=== PATIENT | female | born 1965 | race Native Hawaiian/Other Pacific Islander ===

== ENCOUNTER 2017-08-19 22:20 | Emergency (ER) | payer BC ==
[2017-08-19] MEDS ORDERED: diphenhydrAMINE 50 MG/ML 1 ML VIAL IVP STA (22:45)
[2017-08-19] MEDS ORDERED: FAMOTIDINE 20 MG/2 ML VIAL IV STA (22:45)
--- NOTE | 2017-08-19 22:56 | ED ---
Allergic Reaction HPI - General Chief complaint: Allergic Reaction Stated complaint: Possible Allergic Reaction Time Seen by Provider: 08/19/17 22:30 Source: patient Mode of arrival: ambulatory Limitations: no limitations - History of Present Illness Initial Comments: Patient presents with itching rash that started tonight approximately one hour after eating dinner. Patient states she took prednisone tablets that she is prescribed for poison jorge the same time as her dinner. She states she began having itching and hives on her upper back forearms and lower legs bilaterally. Patient denies any trouble breathing, shortness of breath, throat itching or scratching or swelling, denies tongue swelling, denies chest pain, denies abdominal pain. Patient denies any history of ALLERGIES other than penicillin. Denies food or environmental ALLERGIES. Denies any changes in laundry detergent or new clothes. Denies history of environmental or food ALLERGIES. Patient states she took her first dose of prednisone yesterday without adverse effects. Patient states her lisinopril was changed yesterday to a higher dose, took the higher dose yesterday. She does not take any medications at home prior to arrival for the itching. - Related Data Home Medications Medication Instructions Recorded Confirmed Glimepiride [Amaryl] 4 mg PO BID 07/01/15 08/19/17 Lisinopril [Prinivil] 20 mg PO BID 07/01/15 08/19/17 Atenolol [Tenormin] 100 mg PO BID 08/19/17 08/19/17 Ibuprofen [Motrin] 800 mg PO Q8H PRN 08/19/17 08/19/17 Levothyroxine Sodium [Synthroid] 100 mcg PO DAILY 08/19/17 08/19/17 cloNIDine [Catapres-TTS] 1 patch TRANSDERM GALARZA 08/19/17 08/19/17 methylPREDNISolone [Medrol Dose See Taper PO DIRECTED 08/19/17 08/19/17 Pack] Previous Rx's Medication Instructions Recorded Famotidine [Pepcid] 20 mg PO BID 5 Days #10 tablet 08/19/17 diphenhydrAMINE [Benadryl] 50 mg PO TID PRN #12 capsule 08/19/17 Allergies Allergy/AdvReac Type Severity Reaction Status Date / Time morphine Allergy Unknown Verified 08/19/17 22:55 Penicillins Allergy Rash/Hives, Verified 08/19/17 22:55 swelling Review of Systems ROS Statement: Those systems with pertinent positive or pertinent negative responses have been documented in the HPI. ROS Other: All systems not noted in ROS Statement are negative. Constitutional: Denies: fever, chills Eyes: Denies: eye discharge, vision change ENT: Denies: ear pain, throat pain, congestion Respiratory: Denies: cough, dyspnea, wheezes, stridor Cardiovascular: Denies: chest pain Endocrine: Denies: fatigue Gastrointestinal: Denies: abdominal pain, nausea, vomiting Skin: Reports: rash, pruritus Neurological: Denies: headache Past Medical History Past Medical History: Diabetes Mellitus, Hypertension Additional Past Medical History / Comment(s): Vertigo History of Any Multi-Drug Resistant Organisms: None Reported Past Surgical History: Section, Cholecystectomy Additional Past Surgical History / Comment(s): Cyst removed from left neck Past Psychological History: No Psychological Hx Reported Smoking Status: Former smoker Past Alcohol Use History: Occasional Past Drug Use History: None Reported General Exam - General Exam Comments Initial Comments: Sitting up in bed. No acute distress. Conversing normally. Calm, pleasant. Limitations: no limitations Head exam: Present: atraumatic, normocephalic Eye exam: Present: PERRL, EOMI ENT exam: Present: normal exam, normal oropharynx, mucous membranes moist, other (Oropharynx normal, no erythema or edema appreciated. No lip swelling. No tongue swelling.) Neck exam: Present: normal inspection Respiratory exam: Present: normal lung sounds bilaterally. Absent: respiratory distress, wheezes, rales, rhonchi, stridor Cardiovascular Exam: Present: regular rate, normal rhythm GI/Abdominal exam: Present: soft. Absent: distended, tenderness, guarding, rebound Neurological exam: Present: alert, oriented X3 Psychiatric exam: Present: normal affect, normal mood Skin exam: Present: warm, dry, rash, erythema, urticaria, other (Asians scratching forearms bilaterally. Patient with blanching wheal like erythema on lower extremity is bilaterally, across upper back, forearms bilaterally.) Course Vital Signs 08/19/17 08/19/17 08/19/17 22:22 22:33 23:33 Temperature 97.5 F L Pulse Rate 76 Respiratory 16 18 18 Rate Blood Pressure 214/102 O2 Sat by Pulse 99 Oximetry Medical Decision Making - Medical Decision Making No signs of airway compromise. We'll give Benadryl and Pepcid. Will hold Solu-Medrol as patient may have rare reaction to prednisone. She denies any new foods in her dinner tonight. 23:53 patient reassessed, states symptoms resolved at this time. Feels comfortable going home. No new oral or respiratory symptoms. Patient instructed to stop prednisone, as her poison jorge rash has resolved. Patient to follow up with primary care physician. Patient to review changes in medication with primary care physician if symptoms recur. We'll give prescription Benadryl as needed, Zantac for home. Return to ED if new or worsening symptoms. Patient understands and agrees. Disposition Clinical Impression: Allergic reaction Disposition: HOME SELF-CARE Condition: Good Instructions: General Allergic Reaction (ED) Prescriptions: diphenhydrAMINE [Benadryl] 50 mg PO TID PRN #12 capsule PRN Reason: Itching Famotidine [Pepcid] 20 mg PO BID 5 Days #10 tablet Referrals: Walter Wilburn MD [Primary Care Provider] - 1-2 days
[2017-08-20 00:13] VITALS: BP 172/82; PULSE 72; RESP 16; TEMP 98.3
== END 2017-08-20 00:10 | disposition home or self-care (01) ==
LOC: EC 22:20
DX: L27.0 Generalized skin eruption due to drugs and medicaments taken internally (principal); T38.0X5A Adverse effect of glucocorticoids and synthetic analogues, initial encounter; E11.9 Type 2 diabetes mellitus without complications; I10 Essential (primary) hypertension; Z87.891 Personal history of nicotine dependence; Z88.0 Allergy status to penicillin; Z88.5 Allergy status to narcotic agent; Z79.84 Long term (current) use of oral hypoglycemic drugs; Z79.899 Other long term (current) drug therapy
CPT/HCPCS: 99283; 96374; 96375; J1200

== ENCOUNTER → 2017-09-03 | Outpatient (CLI) | payer BC ==
--- NOTE | 2017-09-03 10:17 | XR ---
EXAMINATION TYPE: XR chest 2V DATE OF EXAM: 09/03/2017 COMPARISON: 10/11/2016 HISTORY: Wheezing and hypertension with bronchospasm TECHNIQUE: Frontal and lateral views of the chest are obtained. FINDINGS: There is no focal air space opacity, pleural effusion, or pneumothorax seen. The cardiac silhouette size is within normal limits. The osseous structures are intact. IMPRESSION: No acute cardiopulmonary process, unchanged from the prior.
== END | disposition home or self-care (01) ==
LOC: RADXRMAIN 09:47
PROVIDERS: ATTEND Family Medicine
DX: J98.01 Acute bronchospasm (principal)
CPT/HCPCS: 71020

== ENCOUNTER 2019-08-26 20:54 | Emergency (ER) | payer BC, OTHER ==
[2019-08-26 21:02] VITALS: PULSE 82; RESP 20; TEMP 98
--- NOTE | 2019-08-26 21:33 | ED ---
General Adult HPI - General Chief complaint: Recheck/Abnormal Lab/Rx Stated complaint: high B/P Source: patient Mode of arrival: ambulatory Limitations: no limitations - History of Present Illness Initial comments: Georgina is a 54-year-old female who presents to the emergency department today for evaluation of asymptomatic hypertension. Patient reports she's been battling hypertension for approximately 2 years, or the past 2 years she's been to the emergency department 5 or 6 times, she follows closely with her primary care physician. She saw her primary care physician earlier in the week due to her hypertension and was prescribed propanolol, however her insurance will not cover the twice a day dosing that was prescribed therefore she hasn't started this drug yet. Patient reports that she's previously been on up to 5 medications at once for hypertension but currently only takes hydralazine 25 mg 2 times daily. Patient states that she's been checking her blood pressure daily morning and night due to her history of hypertension, she states that this evening her blood pressures over 200 systolic which prompted her come to the ER for evaluation. Patient states that when she has high blood pressure she gets a dull headache but this is typical for her, this is not the worse headache of her life is not sudden in onset is not associated with any neurologic deficits or change in vision. denies any chest pain palpitation shortness of breath or lightheadedness. - Related Data Home Medications Medication Instructions Recorded Confirmed Dulaglutide [Trulicity] 0.75 mg SQ TU 08/26/19 08/26/19 Genteal Opth Ointment 1 applic OPHTHALMIC HS 08/26/19 08/26/19 Levothyroxine Sodium [Synthroid] 100 mcg PO DAILY 08/26/19 08/26/19 Meclizine [Antivert] 25 mg PO HS 08/26/19 08/26/19 Montelukast [Singulair] 10 mg PO HS 08/26/19 08/26/19 Olopatadine HCl [Pataday] 1 drop BOTH EYES DAILY 08/26/19 08/26/19 Theratears Dry Eye Preservative 1 drop BOTH EYES QID 08/26/19 08/26/19 Free cycloSPORINE 0.05% OPHTH SOLN 1 drop BOTH EYES BID 08/26/19 08/26/19 [Restasis] hydrALAZINE HCL [Apresoline] 50 mg PO BID 08/26/19 08/26/19 rOPINIRole HCL [Requip] 0.5 mg PO HS 08/26/19 08/26/19 Allergies Allergy/AdvReac Type Severity Reaction Status Date / Time Penicillins Allergy Rash/Hives, Verified 08/26/19 21:42 swelling morphine AdvReac Nausea & Verified 08/26/19 21:42 Vomiting Review of Systems ROS Statement: Those systems with pertinent positive or pertinent negative responses have been documented in the HPI. ROS Other: All systems not noted in ROS Statement are negative. Past Medical History Past Medical History: Diabetes Mellitus, Hypertension Additional Past Medical History / Comment(s): Vertigo History of Any Multi-Drug Resistant Organisms: None Reported Past Surgical History: Section, Cholecystectomy Additional Past Surgical History / Comment(s): Cyst removed from left neck Past Psychological History: No Psychological Hx Reported Smoking Status: Former smoker Past Alcohol Use History: None Reported Past Drug Use History: None Reported General Exam - General Exam Comments Initial Comments: Physical Exam GENERAL: Patient is well-developed and well-nourished. Patient is nontoxic and well-hydrated and is in no distress. HENT: Normocephalic, Atraumatic. EYES: PERRL, EOMI PULMONARY: Unlabored respirations. No audible rales rhonchi or wheezing was noted. CARDIOVASCULAR: There is a regular rate and rhythm without any murmurs gallops or rubs. No S3 or S4 ABDOMEN: Soft and nontender with normal bowel sounds. No pulsatile mass SKIN: Skin is clear with no lesions or rashes and otherwise unremarkable. : Deferred NEUROLOGIC: Patient is alert and oriented x3. Moving all extremities spontaneously MUSCULOSKELETAL: Normal extremities with adequate strength and full range of motion. No lower extremity swelling or edema. No calf tenderness. PSYCHIATRIC: Normal psychiatric evaluation. Limitations: no limitations Course Vital Signs 08/26/19 08/26/19 08/26/19 20:58 22:28 23:12 Temperature 98.0 F Pulse Rate 82 Respiratory 20 Rate Blood Pressure 193/98 190/98 169/74 O2 Sat by Pulse 98 Oximetry Medical Decision Making - Medical Decision Making The patient was seen and evaluated, history is obtained from the patient and at bedside This is a pleasant 54-year-old female with an extensive history of hypertension for which she's been on multiple medications in the past, currently awaiting starting a new beta mayito but has not due to insurance issues. Today the patient's blood pressure was elevated which prompted her to come to the ER for evaluation. Patient has previously been on clonidine's initial dose of this was ordered, blood pressure improved only slightly, patient remains a symptomatic. She is given a first dose of propanolol. Patient's blood pressure improved she remained asymptomatic throughout her stay in the emergency department subsequently discharged home. Patient will contact her primary care physician later in the morning to discuss propanolol prescription. Disposition Clinical Impression: Hypertension Disposition: HOME SELF-CARE Condition: Stable Instructions (If sedation given, give patient instructions): Chronic Hypertension (DC) Is patient prescribed a controlled substance at d/c from ED?: No Referrals: Walter Wilburn MD [Primary Care Provider] - 1-2 days
[2019-08-26] MEDS ORDERED: cloNIDine HCL 0.1 MG TAB PO STA (21:41)
[2019-08-26] MEDS ORDERED: PROPRANOLOL LA 60 MG CAP.SA.24H PO ONE (23:00)
[2019-08-26 23:14] VITALS: BP 169/74
== END 2019-08-26 23:43 | disposition home or self-care (01) ==
LOC: EC 20:54
DX: I10 Essential (primary) hypertension (principal); E11.9 Type 2 diabetes mellitus without complications; Z79.890 Hormone replacement therapy; Z79.899 Other long term (current) drug therapy; Z88.0 Allergy status to penicillin; Z88.5 Allergy status to narcotic agent; Z87.891 Personal history of nicotine dependence
CPT/HCPCS: 99283

== ENCOUNTER 2019-11-05 10:39 | Emergency (ER) | payer BC, OTHER ==
[2019-11-05] MEDS ORDERED: SODIUM CHLORIDE 0.9% 1,000 ML IV STA (11:31)
[2019-11-05] MEDS ORDERED: hydrALAZINE HCL 20 MG/ML 1 ML VIAL IVP STA (11:33)
[2019-11-05] MEDS ORDERED: MECLIZINE 12.5 MG TAB PO STA (11:33)
[2019-11-05] MEDS ORDERED: METOCLOPRAMIDE 5 MG/ML 2 ML VIAL IVP STA (11:33)
--- NOTE | 2019-11-05 11:41 | ED ---
General Adult HPI - General Chief complaint: Dizziness Stated complaint: High BP/Dizziness Time Seen by Provider: 11/05/19 11:20 Source: patient, RN notes reviewed Mode of arrival: wheelchair Limitations: no limitations - History of Present Illness Initial comments: Patient is a pleasant 54-year-old female presenting to the emergency department with dizziness. Onset was several days ago, sudden onset. Symptoms are positional. Symptoms are worse when originally lying down or standing up. Patient does have some associated nausea. No vomiting. Patient did develop a headache 2 days ago. Headache has been gradual onset and is rated 7/10. Headac he is frontal and posterior. No confusion. No weakness. Patient does have history of similar symptoms previously associated with vertigo. Patient has tried Aleve with only mild improvement of headache. Patient has not tried other medications. - Related Data Home Medications Medication Instructions Recorded Confirmed Dulaglutide [Trulicity] 0.75 mg SQ TU 08/26/19 08/26/19 Genteal Opth Ointment 1 applic OPHTHALMIC HS 08/26/19 08/26/19 Levothyroxine Sodium [Synthroid] 100 mcg PO DAILY 08/26/19 08/26/19 Meclizine [Antivert] 25 mg PO HS 08/26/19 08/26/19 Montelukast [Singulair] 10 mg PO HS 08/26/19 08/26/19 Olopatadine HCl [Pataday] 1 drop BOTH EYES DAILY 08/26/19 08/26/19 Theratears Dry Eye Preservative 1 drop BOTH EYES QID 08/26/19 08/26/19 Free cycloSPORINE 0.05% OPHTH SOLN 1 drop BOTH EYES BID 08/26/19 08/26/19 [Restasis] hydrALAZINE HCL [Apresoline] 50 mg PO BID 08/26/19 08/26/19 rOPINIRole HCL [Requip] 0.5 mg PO HS 08/26/19 08/26/19 Previous Rx's Medication Instructions Recorded Metoclopramide HCl [Reglan] 10 mg PO Q6HR PRN #15 tablet 11/05/19 Allergies Allergy/AdvReac Type Severity Reaction Status Date / Time Penicillins Allergy Rash/Hives, Verified 11/05/19 10:45 swelling morphine AdvReac Nausea & Verified 11/05/19 10:45 Vomiting Review of Systems ROS Statement: Those systems with pertinent positive or pertinent negative responses have been documented in the HPI. ROS Other: All systems not noted in ROS Statement are negative. Constitutional: Denies: fever Eyes: Denies: eye pain ENT: Denies: ear pain Respiratory: Denies: cough Cardiovascular: Denies: chest pain Endocrine: Denies: fatigue Gastrointestinal: Denies: abdominal pain Genitourinary: Denies: dysuria Musculoskeletal: Denies: back pain Skin: Denies: rash Neurological: Reports: as per HPI, headache, vertigo. Denies: weakness, paresthesias, confusion Past Medical History Past Medical History: Diabetes Mellitus, Hypertension Additional Past Medical History / Comment(s): Vertigo History of Any Multi-Drug Resistant Organisms: None Reported Past Surgical History: Section, Cholecystectomy Additional Past Surgical History / Comment(s): Cyst removed from left neck Past Psychological History: No Psychological Hx Reported Smoking Status: Former smoker Past Alcohol Use History: None Reported Past Drug Use History: None Reported General Exam Limitations: no limitations General appearance: alert, in no apparent distress Head exam: Present: normocephalic Eye exam: Present: normal appearance, PERRL, EOMI ENT exam: Present: normal oropharynx Neck exam: Present: normal inspection. Absent: tenderness Respiratory exam: Present: normal lung sounds bilaterally Cardiovascular Exam: Present: regular rate, normal rhythm GI/Abdominal exam: Present: soft. Absent: tenderness Extremities exam: Present: normal inspection Neurological exam: Present: alert, oriented X3, CN II-XII intact. Absent: motor sensory deficit Expanded Neurological exam: Present: protecting the airway Speech: Present: fluid speech Cranial nerves: EOM's Intact: Normal, Facial Sensation: Normal Cerebellar function: Finger to Nose: Normal Sensory exam: Upper Extremity Light Touch: Normal, Lower Extremity Light Touch: Normal Motor strength exam: RUE: 5, LUE: 5, RLE: 5, LLE: 5 Eye Response: (4) open spontaneously Motor Response: (6) obeys commands Verbal Response: (5) oriented Psychiatric exam: Present: normal affect, normal mood Skin exam: Present: normal color Course Vital Signs 11/05/19 11/05/19 11/05/19 10:45 10:59 11:00 Temperature 97.9 F Pulse Rate 73 80 79 Respiratory 18 13 14 Rate Blood Pressure 169/104 160/98 O2 Sat by Pulse 98 95 Oximetry 01/10/20 01/10/20 11:52 12:00 Temperature Pulse Rate 86 76 Respiratory 16 15 Rate Blood Pressure 154/87 154/81 O2 Sat by Pulse 99 97 Oximetry EKG Findings - EKG Comments: EKG Findings:: Normal sinus rhythm 77. MI 172. QRS 74. QT 384. QTC 434. Normal axis. Septal Q waves. No acute ST change. Medical Decision Making - Medical Decision Making Patient reevaluated and sitting up in bed requesting discharge home. Patient states symptoms have improved. Patient states she was able to get up and use the restroom without any difficulty. Patient and family updated on results and need for follow-up. - Lab Data Result diagrams: 11/05/19 11:19 11/05/19 11:19 Lab Results 11/05/19 11/05/19 11/05/19 Range/Units 11:19 11:19 11:19 WBC 6.9 (3.8-10.6) k/uL RBC 5.12 (3.80-5.40) m/uL Hgb 15.3 (11.4-16.0) gm/dL Hct 45.6 (34.0-46.0) % MCV 89.0 (80.0-100.0) fL MCH 29.8 (25.0-35.0) pg MCHC 33.5 (31.0-37.0) g/dL RDW 14.9 (11.5-15.5) % Plt Count 220 (150-450) k/uL Neutrophils % 61 % Lymphocytes % 21 % Monocytes % 6 % Eosinophils % 9 % Basophils % 2 % Neutrophils # 4.2 (1.3-7.7) k/uL Lymphocytes # 1.5 (1.0-4.8) k/uL Monocytes # 0.4 (0-1.0) k/uL Eosinophils # 0.6 (0-0.7) k/uL Basophils # 0.1 (0-0.2) k/uL PT 11.7 (9.0-12.0) sec INR 1.1 (<1.2) APTT 26.1 (22.0-30.0) sec Sodium 139 (137-145) mmol/L Potassium 5.2 H (3.5-5.1) mmol/L Chloride 106 (98-107) mmol/L Carbon Dioxide 25 (22-30) mmol/L Anion Gap 8 mmol/L BUN 18 H (7-17) mg/dL Creatinine 0.63 (0.52-1.04) mg/dL Est GFR (CKD-EPI)AfAm >90 (>60 ml/min/1.73 sqM) Est GFR (CKD-EPI)NonAf >90 (>60 ml/min/1.73 sqM) Glucose 179 H (74-99) mg/dL Calcium 9.2 (8.4-10.2) mg/dL Total Bilirubin 0.4 (0.2-1.3) mg/dL AST 26 (14-36) U/L ALT 18 (4-34) U/L Alkaline Phosphatase 110 (38-126) U/L Total Protein 7.6 (6.3-8.2) g/dL Albumin 3.8 (3.5-5.0) g/dL - Radiology Data Radiology results: report reviewed (ET scan the brain shows no acute process. CT angios of the brain and neck reveals no acute process.) Disposition Clinical Impression: Vertigo Disposition: HOME SELF-CARE Condition: Stable Instructions (If sedation given, give patient instructions): Dizziness (ED) Additional Instructions: Please follow-up with primary care physician in the next couple days for rechec k. Continue Antivert as needed. Return for confusion, weakness, worsening or changing symptoms or other concerns. Perception has been sent to [facility]. Prescriptions: Metoclopramide HCl [Reglan] 10 mg PO Q6HR PRN #15 tablet PRN Reason: Nausea Is patient prescribed a controlled substance at d/c from ED?: No Referrals: Walter Wilburn MD [Primary Care Provider] - 1-2 days Time of Disposition: 14:14
[2019-11-05 12:09] LABS: Basophils # (A) 0.1 k/uL (0-0.2); Basophils % (A) 2 %; Eosinophils # (A) 0.6 k/uL (0-0.7); Eosinophils % (A) 9 %; HCT 45.6 % (34.0-46.0); HGB 15.3 gm/dL (11.4-16.0); Lymphocytes # (A) 1.5 k/uL (1.0-4.8); Lymphocytes % (A) 21 %; MCH 29.8 pg (25.0-35.0); MCHC 33.5 g/dL (31.0-37.0); Mean Platelet Volume 10.3; Monocytes # (A) 0.4 k/uL (0-1.0); Monocytes % (A) 6 %; Neutrophils # (A) 4.2 k/uL (1.3-7.7); Neutrophils % (A) 61 %; Platelet Count 220 k/uL (150-450); RBC 5.12 m/uL (3.80-5.40); RDW 14.9 % (11.5-15.5); WBC 6.9 k/uL (3.8-10.6)
[2019-11-05 12:11] LABS: ALT 18 U/L (4-34); AST 26 U/L (14-36); African American GFR (CKD) >90 (>60 ml/min/1.73 sqM); Albumin 3.8 g/dL (3.5-5.0); Alkaline Phosphatase 110 U/L (38-126); Anion Gap 8 mmol/L; Blood Urea Nitrogen 18 mg/dL (7-17); Calcium 9.2 mg/dL (8.4-10.2); Carbon Dioxide 25 mmol/L (22-30); Chloride 106 mmol/L (98-107); Glucose 179 mg/dL (74-99); Non-African American GFR(CKD) >90 (>60 ml/min/1.73 sqM); Potassium 5.2 mmol/L (3.5-5.1); Sodium 139 mmol/L (137-145); Total Bilirubin 0.4 mg/dL (0.2-1.3); Total Protein 7.6 g/dL (6.3-8.2)
[2019-11-05 12:30] LABS: INR 1.1 (<1.2); Partial Thromboplastin Time 26.1 sec (22.0-30.0); Prothrombin Time 11.7 sec (9.0-12.0)
--- NOTE | 2019-11-05 12:52 | CT ---
EXAMINATION TYPE: CT brain wo con DATE OF EXAM: 11/05/2019 COMPARISON: 10/12/2015 INDICATION: headache, nausea, dizziness DLP: 1085 mGycm, Automated exposure control for dose reduction was used. CONTRAST: None CT of the brain is performed utilizing 3 mm thick sections through the posterior fossa and 3 mm thick sections through the remaining calvarium. Study is performed within 24 hours of arrival to the hosp [facility]. No abnormal hyperdensity is present to suggest an acute intracranial hemorrhage. No mass lesion is evident. No acute infarcts are evident. Ventricles and sulci are appropriate for the patient age. There is a patent septum pellucidum, normal variant. Paranasal sinuses and mastoid air cells within the [id number] are clear. IMPRESSIONS: 1. Normal CT Brain
--- NOTE | 2019-11-05 13:38 | CT ---
EXAMINATION TYPE: CT angio head neck DATE OF EXAM: 11/05/2019 HISTORY: headache, nausea, dizziness COMPARISON: CT DLP: 524.2 mGycm. Automated Exposure Control for Dose Reduction was Utilized. TECHNIQUE: CTA scan of the neck is performed with IV Contrast, patient injected with 65 mL of Isovue 370, axial images are obtained, coronal and sagittal reformatted images are reviewed. Three-D recons tructed images are created on an independent workstation and reviewed. Source images are reviewed. FINDINGS: Carotid/Vascular Structures: There is a large. Internal carotid arteries appear normal. Common caroti d arteries bifurcate into internal and external carotid arteries without significant flow-limiting st enosis. Vertebral arteries are codominant. Cervical of [place]: Vertebral basilar system appears normal. Posterior cerebral vasculature is unrema rkable. Internal carotid arteries bifurcate normally into A1 and M1 segments. A2 segments are normal. The anterior communicating artery is patent. Left Posterior communicating artery is patent. Right po sterior communicating artery is patent. IMPRESSION: 1. No flow-limiting stenosis bilateral carotid bifurcations. 2. Normal point [place] of [place]
[2019-11-05 14:27] VITALS: BP 158/87; PULSE 87; RESP 16; TEMP 98
== END 2019-11-05 14:27 | disposition home or self-care (01) ==
LOC: EC 10:39
DX: R42 Dizziness and giddiness (principal); R11.0 Nausea; R51 Headache; E11.9 Type 2 diabetes mellitus without complications; I10 Essential (primary) hypertension; Z87.891 Personal history of nicotine dependence; Z88.0 Allergy status to penicillin; Z88.5 Allergy status to narcotic agent; Z79.84 Long term (current) use of oral hypoglycemic drugs; Z79.890 Hormone replacement therapy; Z79.899 Other long term (current) drug therapy; Z90.49 Acquired absence of other specified parts of digestive tract; Z53.8 Procedure and treatment not carried out for other reasons
CPT/HCPCS: 99284; 96374; 96361; 36415; 93005; 80053; 85025; 85610; 85730; 70496; 70450; 70498; J2765; Q9967

== ENCOUNTER 2019-11-08 09:32 | Observation (INO) | payer BC, OTHER ==
[2019-11-09 12:58] VITALS: PULSE 79; TEMP 97.8
[2019-11-09 15:04] VITALS: RESP 16
[2019-11-09 16:57] VITALS: BP 161/93
== END 2019-11-09 18:30 | disposition home or self-care (01) ==
LOC: UNDOADMIN 11:26 → INTOOBSV 11:26 → 6PED 11:26 → 5NMEDONC 21:57 → UNDODISIN 11-09 18:30
PROVIDERS: ADMIT Family Medicine; ATTEND Family Medicine
DX: J01.20 Acute ethmoidal sinusitis, unspecified (principal); I67.82 Cerebral ischemia; E86.0 Dehydration; J01.10 Acute frontal sinusitis, unspecified; I10 Essential (primary) hypertension; E11.9 Type 2 diabetes mellitus without complications; E03.9 Hypothyroidism, unspecified; H04.123 Dry eye syndrome of bilateral lacrimal glands; R42 Dizziness and giddiness; I95.1 Orthostatic hypotension; I08.1 Rheumatic disorders of both mitral and tricuspid valves; Z79.890 Hormone replacement therapy; Z79.84 Long term (current) use of oral hypoglycemic drugs; Z79.899 Other long term (current) drug therapy; Z79.891 Long term (current) use of opiate analgesic; Z79.51 Long term (current) use of inhaled steroids; Z88.0 Allergy status to penicillin; Z88.5 Allergy status to narcotic agent; Z90.49 Acquired absence of other specified parts of digestive tract; Z98.890 Other specified postprocedural states; Z87.891 Personal history of nicotine dependence; Z82.61 Family history of arthritis; Z83.2 Family history of diseases of the blood and blood-forming organs and certain disorders involving the immune mechanism; Z82.69 Family history of other diseases of the musculoskeletal system and connective tissue; Z82.49 Family history of ischemic heart disease and other diseases of the circulatory system; Z83.3 Family history of diabetes mellitus
CPT/HCPCS: 96360; 96361; 93306; 80053 ×2; 84443; 83605; 85025 ×2; 81001; 70553; G0378 ×3; G0379; A9585

== ENCOUNTER 2020-05-29 11:08 | Emergency (ER) | payer BC, OTHER ==
[2020-05-29 11:17] VITALS: BP 151/77; PULSE 78; RESP 16; TEMP 98.4
[2020-05-29] MEDS ORDERED: KETOROLAC 30 MG/ML 1 ML VIAL IM STA (11:29)
--- NOTE | 2020-05-29 11:37 | ED ---
General Adult HPI - General Chief complaint: Fall Stated complaint: [facility]-fall Time Seen by Provider: 05/29/20 11:10 Source: patient, RN notes reviewed, old records reviewed Mode of arrival: wheelchair Limitations: no limitations - History of Present Illness Initial comments: This is a 54-year-old female who presents emergency department after having fall en. Patient complains of left wrist pain and left knee pain and right trapezius and right upper back pain. Patient states she didn't strike her head or neck and she has no headache or neck pain. Patient states her right trapezius and upper back did not hit the ground but she turned abruptly and she thinks she injured at that point. Patient states she braced her fall with her hand and knee and that's why she believes both those are heard. Patient states her left wrist is swollen and very tender to touch. Patient states she has full range of motion of the left knee but it is tender medially and laterally. Patient denies any lower back pain patient denies any belly pain or chest pain patient denies any loss of consciousness. - Related Data Home Medications Medication Instructions Recorded Confirmed Genteal Opth Ointment 1 applic OPHTHALMIC HS 08/26/19 05/29/20 Levothyroxine Sodium [Synthroid] 100 mcg PO DAILY 08/26/19 05/29/20 Meclizine [Antivert] 25 mg PO BID 08/26/19 05/29/20 Montelukast [Singulair] 10 mg PO HS 08/26/19 05/29/20 cycloSPORINE 0.05% OPHTH SOLN 1 drop BOTH EYES BID 08/26/19 05/29/20 [Restasis] hydrALAZINE HCL [Apresoline] 50 mg PO TID 08/26/19 05/29/20 Artificial Tears-Hypromellose 1 drops BOTH EYES QID 05/29/20 05/29/20 [Artificial Tear Drops] Diclofenac Sodium Gel [Voltaren 1 applic TOPICAL BID PRN 05/29/20 05/29/20 Gel] Dulaglutide [Trulicity] 1.5 mg SQ SA 05/29/20 05/29/20 Naproxen Sodium [Aleve] 220 mg PO BID PRN 05/29/20 05/29/20 amLODIPine [Norvasc] 5 mg PO DAILY 05/29/20 05/29/20 rOPINIRole HCL [Requip] 1 mg PO HS 05/29/20 05/29/20 Previous Rx's Medication Instructions Recorded Cyclobenzaprine [Flexeril] 10 mg PO TID #20 tab 05/29/20 Ibuprofen [Motrin] 600 mg PO Q6HR PRN #20 tab 05/29/20 Allergies Allergy/AdvReac Type Severity Reaction Status Date / Time Penicillins Allergy Severe Rash/Hives, Verified 05/29/20 12:14 swelling morphine AdvReac Severe Nausea & Verified 05/29/20 12:14 Vomiting Review of Systems ROS Statement: Those systems with pertinent positive or pertinent negative responses have been documented in the HPI. ROS Other: All systems not noted in ROS Statement are negative. Past Medical History Past Medical History: Diabetes Mellitus, Hypertension, Thyroid Disorder Additional Past Medical History / Comment(s): Vertigo, type 2 History of Any Multi-Drug Resistant Organisms: None Reported Past Surgical History: Section, Cholecystectomy Additional Past Surgical History / Comment(s): Cyst removed from left neck Past Psychological History: No Psychological Hx Reported Smoking Status: Never smoker Past Alcohol Use History: None Reported Past Drug Use History: None Reported - Past Family History Mother Additional Family Medical History / Comment(s): RA, lupus, fibramyalgia, enlarged heart Father Family Medical History: Diabetes Mellitus Additional Family Medical History / Comment(s): type 2 General Exam - General Exam Comments Initial Comments: GENERAL: Patient is well-developed and well-nourished. Patient is nontoxic and well- hydrated and is in mild distress. ENT: Neck is soft and supple. No significant lymphadenopathy is noted. Oropharynx is clear. Moist mucous membranes. Neck has full range of motion without eliciting any pain. EYES: The sclera were anicteric and conjunctiva were pink and moist. Extraocular movements were intact and pupils were equal round and reactive to light. Eyelids were unremarkable. PULMONARY: Unlabored respirations. Good breath sounds bilaterally. No audible rales rhonchi or wheezing was noted. CARDIOVASCULAR: There is a regular rate and rhythm without any murmurs gallops or rubs. ABDOMEN: Soft and nontender with normal bowel sounds. SKIN: Skin is clear with no lesions or rashes and otherwise unremarkable. NEUROLOGIC: Patient is alert and oriented x3. Cranial nerves II through XII are grossly intact. Motor and sensory are also intact. Normal speech, volume and content. Symmetrical smile. MUSCULOSKELETAL: Patient's left wrist is swollen and slightly deformed and tender to palpation throughout patient's first metacarpal is tender to palpation. Patient's left knee has full range of motion however there is some tenderness over the proximal lateral aspect of the knee and there is some slight tenderness on the medial aspect of the knee. The knee Seems to be nontender and there is no swelling to the knee. PSYCHIATRIC: Normal psychiatric evaluation. Limitations: no limitations Course Vital Signs 05/29/20 11:11 Temperature 98.4 F Pulse Rate 78 Respiratory 16 Rate Blood Pressure 151/77 O2 Sat by Pulse 100 Oximetry Procedures - Orthopedic Splinting/Casting Injury #1 Side: left Upper Extremity Injury Location: short arm Upper Extremity Immobilizer: volar splint Medical Decision Making - Medical Decision Making X-ray of the left knee shows no acute abnormality. X-ray of the left wrist and hand show no acute abnormality. I went back into reevaluate the patient the Toradol helped her but she was still having significant tenderness about the wrist so I splinted her. Patient will follow-up with orthopedic. Disposition Clinical Impression: Cervical strain, Wrist sprain, Contusion, knee Disposition: HOME SELF-CARE Condition: Good Instructions (If sedation given, give patient instructions): Wrist Sprain (ED) Prescriptions: Cyclobenzaprine [Flexeril] 10 mg PO TID #20 tab Ibuprofen [Motrin] 600 mg PO Q6HR PRN #20 tab PRN Reason: For pain Is patient prescribed a controlled substance at d/c from ED?: No Referrals: Celso Cummings MD [STAFF PHYSICIAN] - 1-2 days Time of Disposition: 12:44
[2020-05-29] MEDS ORDERED: KETOROLAC 30 MG/ML 1 ML VIAL IVP STA (11:43)
--- NOTE | 2020-05-29 12:25 | XR ---
EXAMINATION TYPE: XR knee complete LT DATE OF EXAM: 05/29/2020 COMPARISON: NONE HISTORY: Pain TECHNIQUE: Three views are submitted. FINDINGS: Joint spaces are preserved. Osseous structures are intact. No acute fracture seen. Mild diffuse os teopenia mild narrowing of the medial compartment of the knee joint. IMPRESSION: 1. No acute fracture or dislocation.
--- NOTE | 2020-05-29 12:25 | XR ---
EXAMINATION TYPE: XR wrist complete LT, XR hand complete LT DATE OF EXAM: 05/29/2020 CLINICAL HISTORY: Trauma injury with pain. TECHNIQUE: Frontal, lateral and oblique images of the left hand and wrist are obtained. Fourth left scaphoid view acquired. COMPARISON: None FINDINGS: There is no acute fracture/dislocation evident in the left wrist. Moderate to severe narro wing with moderate spurring and joint space sclerosis base of first metacarpal noted. The overlying soft tissue appears unremarkable. Images of left hand show no acute fracture or dislocation. Mild joint space loss without significant spurring throughout the PIP and DIP joints. Overlying soft tissues are unremarkable. IMPRESSION: There is no acute fracture or dislocation in the left hand or wrist.
== END 2020-05-29 12:56 | disposition home or self-care (01) ==
LOC: EC 11:08
DX: S16.1XXA Strain of muscle, fascia and tendon at neck level, initial encounter (principal); S63.502A Unspecified sprain of left wrist, initial encounter; S80.02XA Contusion of left knee, initial encounter; E11.9 Type 2 diabetes mellitus without complications; I10 Essential (primary) hypertension; E07.9 Disorder of thyroid, unspecified; Z79.890 Hormone replacement therapy; Z79.899 Other long term (current) drug therapy; Z79.84 Long term (current) use of oral hypoglycemic drugs; Z88.0 Allergy status to penicillin; Z88.5 Allergy status to narcotic agent; W19.XXXA Unspecified fall, initial encounter; Y92.69 Other specified industrial and construction area as the place of occurrence of the external cause; Y99.0 Civilian activity done for income or pay
CPT/HCPCS: 73110; 73130; 73562; 99284; 96374; 29125; J1885

== ENCOUNTER 2021-01-04 07:06 | Day surgery (SDC) | payer BC ==
[2021-01-01 13:42] VITALS: BMI 38.9
[~2021-01-04 07:06] MED LIST: LACTATED RINGERS 1,000 ML IV SCH; LIDOCAINE 1% (10MG/ML) FOR IV START INTRADERMA PRN
[2021-01-04 07:33] VITALS: TEMP 97.8
[2021-01-04 07:36] LABS: Glucose,Whole Blood 148 mg/dL (75-99)
[2021-01-04] MEDS ORDERED: PROPOFOL 10 MG/ML 20 ML VIAL IV ONE (07:58)
--- NOTE | 2021-01-04 08:00 | P.GSHP ---
History of Present Illness H&P Date: 01/04/21 Chief Complaint: Dysphagia, screening colonoscopy Is a 55-year-old female presents today for colonoscopy. Physician dysphagia. She's also presents for screening colonoscopy. She's had some symptoms of irritable bowel syndrome. Past Medical History Past Medical History: Diabetes Mellitus, Hypertension, Thyroid Disorder Additional Past Medical History / Comment(s): Vertigo. History of Any Multi-Drug Resistant Organisms: None Reported Past Surgical History: Section, Cholecystectomy Additional Past Surgical History / Comment(s): Cyst removed from left neck. Past Anesthesia/Blood Transfusion Reactions: No Reported Reaction Past Psychological History: No Psychological Hx Reported Smoking Status: Never smoker Past Alcohol Use History: None Reported Past Drug Use History: None Reported - Past Family History Mother Additional Family Medical History / Comment(s): RA, Lupus, Fibromyalgia, enlarged heart. Father Family Medical History: Diabetes Mellitus Additional Family Medical History / Comment(s): Type 2. Medications and Allergies Home Medications Medication Instructions Recorded Confirmed Type Genteal Opth Ointment 1 applic OPHTHALMIC HS 08/26/19 01/01/21 History Levothyroxine Sodium [Synthroid] 100 mcg PO DAILY 08/26/19 01/01/21 History Meclizine [Antivert] 25 mg PO BID 08/26/19 01/01/21 History Montelukast [Singulair] 10 mg PO HS 08/26/19 01/01/21 History cycloSPORINE 0.05% OPHTH SOLN 1 drop BOTH EYES BID 08/26/19 01/01/21 History [Restasis] hydrALAZINE HCL [Apresoline] 50 mg PO TID 08/26/19 01/01/21 History Artificial Tears-Hypromellose 1 drops BOTH EYES QID 05/29/20 01/04/21 History [Artificial Tear Drops] Diclofenac Sodium Gel [Voltaren 1 applic TOPICAL BID PRN 05/29/20 01/01/21 History Gel] Dulaglutide [Trulicity] 1.5 mg SQ SA 05/29/20 01/04/21 History Dicyclomine [Bentyl] 10 mg PO TID 01/01/21 01/04/21 History Glimepiride [Amaryl] 4 mg PO BID 01/01/21 01/04/21 History L.acidoph,Paracasei, B.lactis 1 each PO DAILY 01/01/21 01/04/21 History [Probiotic] Lansoprazole [Prevacid] 15 mg PO DAILY 01/01/21 01/01/21 History Allergies Allergy/AdvReac Type Severity Reaction Status Date / Time Penicillins Allergy Severe Rash/Hives, Verified 01/04/21 07:19 swelling morphine AdvReac Severe Nausea & Verified 01/04/21 07:19 Vomiting Surgical - Exam Vital Signs Temp Pulse Resp BP Pulse Ox 97.8 F 82 17 157/85 100 01/04/21 07:32 01/04/21 07:32 01/04/21 07:32 01/04/21 07:32 01/04/21 07:32 - General well developed, well nourished, no distress - Eyes PERRL - ENT normal pinna - Neck no masses - Respiratory normal expansion - Cardiovascular Rhythm: regular - Abdomen Abdomen: soft, non tender Results - Labs Abnormal Lab Results - Last 24 Hours (Table) 01/04/21 Range/Units 07:28 POC Glucose (mg/dL) 148 H (75-99) mg/dL Assessment and Plan Assessment: Dysphagia. We'll perform EGD. We'll also perform screening colonoscopy.
--- NOTE | 2021-01-04 08:17 | P.OP ---
Date of Procedure: 01/04/21 Preoperative Diagnosis: Dysphagia Screening colonoscopy Postoperative Diagnosis: Antral gastritis Procedure(s) Performed: EGD Colonoscopy Anesthesia: MAC Surgeon: Rommel Coyle Pathology: other (Antrum) Condition: stable Disposition: PACU Description of Procedure: The patient's placed on the endoscopy table in the lateral position. She received IV sedation. The gastroscope placed oropharynx as needed esophagus and stomach. Scope was placed through the pylorus. The first and second portion of duodenum appeared normal. Scope was then brought back the antrum this was mildly inflamed. A biopsies performed. The scope was then retroflexed remainder stomach appeared normal. There is no significant hiatal hernia. The GE junction was at 40 cm. The distal esophagus normal. The proximal esophagus. Normal. Scope withdrawn for patient. Next digital rectal exam was performed, there was no abnormalities. The possible colonoscope was then placed patient anus and passed throughout the entire colon. The ileocecal valve was visually is. The cecum, ascending and transverse colon appeared normal. The descending; appeared normal. Scope was withdrawn for patient and the rectum was normal. Scope outpatient.
[2021-01-04 08:39] VITALS: BP 153/74; PULSE 77; RESP 20
== END 2021-01-04 09:10 | disposition home or self-care (01) ==
LOC: ORWHC2ENDO 07:06
PROVIDERS: ATTEND Surgery
DX: Z12.11 Encounter for screening for malignant neoplasm of colon (principal); K29.50 Unspecified chronic gastritis without bleeding; E11.9 Type 2 diabetes mellitus without complications; I10 Essential (primary) hypertension; E07.9 Disorder of thyroid, unspecified; K58.9 Irritable bowel syndrome, unspecified; R42 Dizziness and giddiness; Z98.891 History of uterine scar from previous surgery; Z90.49 Acquired absence of other specified parts of digestive tract; Z82.61 Family history of arthritis; Z84.89 Family history of other specified conditions; Z83.2 Family history of diseases of the blood and blood-forming organs and certain disorders involving the immune mechanism; Z97.2 Presence of dental prosthetic device (complete) (partial); Z79.84 Long term (current) use of oral hypoglycemic drugs; Z79.890 Hormone replacement therapy; Z79.899 Other long term (current) drug therapy; Z88.5 Allergy status to narcotic agent; Z88.0 Allergy status to penicillin
CPT/HCPCS: 88305; 43239; J2704; G0121; 45378

== ENCOUNTER → 2021-05-15 | Outpatient (CLI) | payer BC ==
--- NOTE | 2021-05-15 12:53 | XR ---
EXAMINATION TYPE: XR cervical spine comp DATE OF EXAM: 05/15/2021 TECHNIQUE: Frontal, lateral, oblique, swimmers, and open mouth view of the cervical spine are obtaine d. HISTORY: M54.12 cervical DDD COMPARISON: None FINDINGS: Vertebral body heights are preserved. There is mild anterolisthesis of C2 on 3 measuring 3 mm and mil d retrolisthesis of C3 on 4 measuring 4 mm and C5 on 6 measuring 3 mm and C6 on 7 measuring 6 cm. Mul tilevel endplate sclerosis and osteophytosis is seen. There is bilateral uncovertebral and facet arth ropathy without bony encroachment upon the neural foramen. No enlargement of the prevertebral soft ti ssues. IMPRESSION: Multilevel alignment abnormalities with multilevel disc disease and osteoarthritic changes, as descri bed.
== END | disposition home or self-care (01) ==
LOC: RADXRMAIN 11:32
PROVIDERS: ATTEND Family Medicine
DX: M50.123 Cervical disc disorder at C6-C7 level with radiculopathy (principal); M47.22 Other spondylosis with radiculopathy, cervical region
CPT/HCPCS: 72050

== ENCOUNTER → 2021-05-30 | Outpatient (CLI) | payer BC | END | disposition home or self-care (01) | LOC: RADCTMAIN 07:32 | PROVIDERS: ATTEND Family Medicine | DX: Z53.9 Procedure and treatment not carried out, unspecified reason (principal) ==

== ENCOUNTER → 2021-11-02 | Outpatient (CLI) | payer OTHER ==
[~2021-11-02] MED LIST changes: +CASIRIVIMAB (REGN10933) (EUA) 600 MG, IMDEVIMAB (REGN10987) (EUA) 600 MG in SODIUM CHLO... IVPB ONE; -LACTATED RINGERS 1,000 ML IV SCH; -LIDOCAINE 1% (10MG/ML) FOR IV START INTRADERMA PRN; +SODIUM CHLORIDE 0.9% 50 ML IVPB ONE; +SODIUM CHLORIDE 0.9% 500 ML 500 ML in EMPTY BAG 1 BAG IV PRN
[2021-11-02 12:04] VITALS: TEMP 98.4
[2021-11-02 13:00] VITALS: BP 162/90; PULSE 80; RESP 16
== END ==
LOC: PROCWHC3 11:27
PROVIDERS: ATTEND Family Medicine
DX: U07.1 COVID-19 (principal); E66.9 Obesity, unspecified; Z68.36 Body mass index [BMI] 36.0-36.9, adult; Z88.0 Allergy status to penicillin; Z88.5 Allergy status to narcotic agent; Z87.891 Personal history of nicotine dependence
CPT/HCPCS: 96360; Q0244; M0243

== ENCOUNTER → 2022-01-03 | Outpatient (CLI) | payer BC, OTHER ==
--- NOTE | 2022-01-03 13:34 | MR ---
EXAMINATION TYPE: MR cervical spine wo con DATE OF EXAM: 01/03/2022 COMPARISON: X-ray 12/14/2021 HISTORY: Neck pain that goes down right arm, 6 months. TECHNIQUE: Multiplanar, multisequence images of the cervical spine were acquired without contrast. C2-C3: No evidence for degenerative disc disease. No disc bulge/herniation or protrusion. No Canal stenosis. Foramina are patent bilaterally. C3-C4: Severe degenerative disc disease with posterior spondylosis and disc capped by spur resulting in canal stenosis. Uncovertebral joint hypertrophy with moderate bilateral foraminal encroachment gre ater on the left. There is encroachment upon the anterior margin the spinal cord. C4-C5: broad-based central left paracentral disc protrusion capped by spur. Uncovertebral joint hyper trophy results in moderate right and mild left foraminal encroachment. There is anterior impression u shruthi the spinal cord. Canal stenosis noted. C5-C6: Severe degenerative disc disease. There is broad-based disc bulging or protrusion capped by sp ur. There is a mild mass effect upon the anterior margin of the spinal cord. Moderate bilateral kritsi inal encroachment and there is moderate canal stenosis. C6-C7: Uncovertebral joint hypertrophy on the left with mild left-sided foraminal encroachment. No Ca nal stenosis. Minimal central disc bulging but no focal herniation. C7-T1: No evidence for degenerative disc disease. No disc bulge/herniation or protrusion. No Canal stenosis. Foramina are patent bilaterally. Cervical segments are intact. There is normal alignment. Cervical spinal cord is of normal signal. Craniovertebral junction relationships are within normal limits. IMPRESSION: 1. Severe degenerative disc disease levels C3-4, C4-5 and C5-C6 with posterior disc protrusion capped by spur and uncovertebral joint hypertrophy at all levels resulting in moderate canal stenosis and b ilateral foraminal encroachment as discussed above. All levels demonstrate mild anterior compression upon the spinal cord most noted at C3-C4. Correlate clinically.
== END | disposition home or self-care (01) ==
LOC: RADMRIMAIN 12:01
PROVIDERS: ATTEND Orthopaedic Surgery
DX: M48.02 Spinal stenosis, cervical region (principal); M50.323 Other cervical disc degeneration at C6-C7 level; M50.221 Other cervical disc displacement at C4-C5 level; M25.78 Osteophyte, vertebrae
CPT/HCPCS: 72141

== ENCOUNTER → 2022-02-21 | Outpatient (CLI) | payer BC, OTHER ==
--- NOTE | 2022-02-21 10:08 | CT ---
EXAMINATION TYPE: CT chest wo con DATE OF EXAM: 02/21/2022 COMPARISON: Prior CT June 16, 2013 HISTORY: Pleural Effusion. Right-sided pain and difficulty breathing after recent fall injury or CT DLP: 718 mGycm. Automated Exposure Control for Dose Reduction was Utilized. TECHNIQUE: CT scan of the thorax is performed without IV contrast. FINDINGS: LUNGS: Mild central left basilar linear scarring. No suspicious focal consolidation. No pleural effus ion or pneumothorax seen bilaterally. No concerning masses. Stable 4 to 5 mm peripheral right mid dwaine g nodule axial image 30. No pleural effusion or pneumothorax seen bilaterally. No suspicious focal co nsolidation. MEDIASTINUM: Lack of IV contrast is noted to limit evaluation for mediastinal and especially hilar ad enopathy. There are no definitive greater than 1 cm mediastinal lymph nodes. No cardiomegaly or per icardial effusion is seen. Coronary artery calcification is seen. OTHER: Smaller in size nonspecific 2.5 cm hypodense lesion peripheral right hepatic dome image 45. Co rrelate clinically. Cholecystectomy clips are identified. Mild multilevel spurring. IMPRESSION: No pleural effusion is evident. No acute pulmonary process.
== END | disposition home or self-care (01) ==
LOC: RADCTMAIN 08:06
PROVIDERS: ATTEND Family Medicine
DX: J90 Pleural effusion, not elsewhere classified (principal)
CPT/HCPCS: 71250

== ENCOUNTER 2024-01-21 06:49 | Day surgery (SDC) | payer BC, OTHER ==
[2024-01-20 09:22] VITALS: BMI 33.8
[~2024-01-21 06:49] MED LIST changes: -CASIRIVIMAB (REGN10933) (EUA) 600 MG, IMDEVIMAB (REGN10987) (EUA) 600 MG in SODIUM CHLO... IVPB ONE; -SODIUM CHLORIDE 0.9% 50 ML IVPB ONE; -SODIUM CHLORIDE 0.9% 500 ML 500 ML in EMPTY BAG 1 BAG IV PRN; +TETRACAINE 0.5% OPHTH (PF) DROPS 4 ML BTL OP PRN
[2024-01-21] MEDS: CYCLOPENTOLATE 1% OPHTH SOLN 2 ML BTL OP PRN (06:55)
[2024-01-21] MEDS: LACTATED RINGERS 1,000 ML IV SCH (06:56)
[2024-01-21] MEDS: PHENYLEPHRINE 2.5% OPHTH DRP 2ML OP PRN (06:58)
[2024-01-21 07:05] LABS: Glucose,Whole Blood 89 mg/dL (70-110)
[2024-01-21 07:11] VITALS: TEMP 97.4
[2024-01-21] MEDS ORDERED: MIDAZOLAM 2 MG/2 ML VIAL ONE (07:28)
[2024-01-21] MEDS ORDERED: fentaNYL (PF) 50 MCG/ML 2 ML AMP ONE (07:28)
[2024-01-21] MEDS: BALANCED SALT IRRIG SOLN COMB2 15 ML IRRIG.SOLN INTRAOCULA ONE (07:39)
[2024-01-21] MEDS: HYALURONATE SODIUM INTRAOCULAR 1 EACH SYRINGE (12MG/ML) INTRAOCULA ONE (07:39)
[2024-01-21] MEDS: MOXIFLOXACIN HCL 0.5% DROPS 3 ML BTL OP PRN (07:40)
[2024-01-21] MEDS: TIMOLOL 0.5% OPHTH DROPS 5 ML BTL OP PRN (07:40)
[2024-01-21] MEDS: LIDOCAINE 1% (PF) 10MG/ML VIAL MISCELLANE ONE (07:40)
[2024-01-21] MEDS: EPINEPHrine (PF) 0.3 ML in BALANCED SALT IRRIG SOLN COMB2 500 ML IRRIGATION ONE (07:41)
--- NOTE | 2024-01-21 07:52 | P.OP ---
Date of Procedure: 01/21/24 Preoperative Diagnosis: NS & CS Postoperative Diagnosis: same Procedure(s) Performed: PIOL< OD Implants: [id number] 18.00 Anesthesia: MAC Surgeon: Nick Dill Pathology: none sent Condition: stable Disposition: same day Indications for Procedure: blurry vision Operative Findings: no complications
[2024-01-21 08:07] LABS: Glucose,Whole Blood 92 mg/dL (70-110)
[2024-01-21 08:25] VITALS: BP 141/86; PULSE 86; RESP 20
--- NOTE | 2024-01-21 14:21 | OP ---
OPERATIVE REPORT DATE OF SERVICE : 01/21/2024 PREOPERATIVE DIAGNOSIS: Nuclear sclerosis, cortical sclerosis. POSTOPERATIVE DIAGNOSIS: Nuclear sclerosis, cortical sclerosis. OPERATION: Phacoemulsification of cataract and interocular lens implant of the right eye. ESTIMATED BLOOD LOSS: Zero. SPECIMEN TAKEN: None. NARRATIVE: After obtaining the appropriate consent, the patient was brought to the operating room where the patient was placed under cardiac monitoring and prepped and draped in the usual sterile manner. At the 11 o'clock position, a 15-degree super sharp blade was used to create a paracentesis followed by instillation of 1% Xylocaine MPF 50:50 mix with BSS into the anterior chamber. This was followed by Amvisc viscoelastic to stabilize the anterior chamber. At the 9 o'clock position a self-sealing corneal flap incision was created using 2.8 mm phill keratome. A cystotome was used to initiate a continuous tear capsulorrhexis which was completed with the Utrata forceps. A Binkhorst cannula was used to hydrodissect the lens nucleus followed by hydrodelineation. Phacoemulsification of the lens was performed utilizing phacochop in 8.83 seconds at 13% power. The remaining cortical material was removed using the irrigation aspiration mode followed by additional 1% Xylocaine MPF into the anterior chamber followed by viscoelastic to stabilize the capsular bag. A [employer] MX60E 18.0 diopters posterior chamber lens was placed into the capsular bag without difficulty. The remaining viscoelastic material was removed from the anterior chamber with the irrigation/aspiration. Balanced salt solution was used to normalize the intraocular pressure. The incision was checked for watertight integrity. The patient then received 2 drops of 0.5% timolol followed by 2 drops Vigamox, was lightly patched and shielded in the usual manner. There were no complications from the procedure. The patient tolerated the procedure well and was returned to recovery in good condition. MMODL / IJN: [id number] /
== END 2024-01-21 08:55 | disposition home or self-care (01) ==
LOC: OR 06:49
PROVIDERS: ATTEND Ophthalmology
DX: E11.36 Type 2 diabetes mellitus with diabetic cataract (principal); H25.011 Cortical age-related cataract, right eye; H25.11 Age-related nuclear cataract, right eye; I10 Essential (primary) hypertension; E03.9 Hypothyroidism, unspecified; Z88.0 Allergy status to penicillin; Z88.5 Allergy status to narcotic agent; Z79.84 Long term (current) use of oral hypoglycemic drugs; Z79.85 Long-term (current) use of injectable non-insulin antidiabetic drugs; Z79.899 Other long term (current) drug therapy; Z87.891 Personal history of nicotine dependence; Z79.890 Hormone replacement therapy
CPT/HCPCS: 66984; C1780; J2250; J0171; J3010; J2001

== ENCOUNTER 2024-02-04 05:58 | Day surgery (SDC) | payer BC ==
[2024-02-03 09:07] VITALS: BMI 33.8
[2024-02-04] MEDS: LACTATED RINGERS 1,000 ML IV SCH (06:38)
[2024-02-04] MEDS: PHENYLEPHRINE 2.5% OPHTH DRP 2ML OP PRN (06:44)
[2024-02-04] MEDS: CYCLOPENTOLATE 2% OPHTH SOLN 2 ML BTL OP PRN (06:47)
[2024-02-04 06:55] LABS: Glucose,Whole Blood 88 mg/dL (70-110)
[2024-02-04 07:22] VITALS: RESP 16; TEMP 96.8
[2024-02-04] MEDS ORDERED: MIDAZOLAM 2 MG/2 ML VIAL ONE (07:33)
[2024-02-04] MEDS: EPINEPHrine (PF) 0.3 ML in BALANCED SALT IRRIG SOLN COMB2 500 ML IRRIGATION ONE (07:46)
[2024-02-04] MEDS: LIDOCAINE 1% (PF) 10MG/ML VIAL MISCELLANE ONE (07:49)
[2024-02-04] MEDS: DUOVISC KIT (GREEN BOX) INTRAOCULA ONE (07:49)
[2024-02-04] MEDS: MOXIFLOXACIN HCL 0.5% DROPS 3 ML BTL OP PRN (07:49)
[2024-02-04] MEDS: TIMOLOL 0.5% OPHTH DROPS 5 ML BTL OP PRN (07:50)
[2024-02-04] MEDS: BALANCED SALT IRRIG SOLN COMB2 15 ML IRRIG.SOLN INTRAOCULA ONE (07:50)
--- NOTE | 2024-02-04 08:05 | P.OP ---
Date of Procedure: 02/04/24 Preoperative Diagnosis: NS & CS Postoperative Diagnosis: same Procedure(s) Performed: PIOL, OS Implants: [id number] 18.00 Anesthesia: MAC Surgeon: Nick Dill Pathology: none sent Condition: stable Disposition: same day Indications for Procedure: blurry vision Operative Findings: no complications
[2024-02-04 08:44] VITALS: BP 143/82; PULSE 77
--- NOTE | 2024-02-04 11:54 | OP ---
OPERATIVE REPORT DATE OF SERVICE : 02/04/2024 PREOPERATIVE DIAGNOSIS: Nuclear sclerosis, cortical sclerosis. POSTOPERATIVE DIAGNOSIS: Nuclear sclerosis, cortical sclerosis. OPERATION: Phacoemulsification of cataract and interocular lens implant, left eye. ESTIMATED BLOOD LOSS: Zero. SPECIMEN TAKEN: None. NARRATIVE: After obtaining the appropriate consent, the patient was brought to the operating room where the patient was placed under cardiac monitoring and prepped and draped in the usual sterile manner. At the 5 o'clock position, a 15-degree super sharp blade was used to create a paracentesis followed by instillation of 1% Xylocaine MPF 50:50 mix with BSS into the anterior chamber. This was followed by Amvisc viscoelastic to stabilize the anterior chamber. At the 3 o'clock position a self-sealing corneal flap incision was created using 2.8 mm phill keratome. A cystotome was used to initiate a continuous tear capsulorrhexis which was completed with the Utrata forceps. A Binkhorst cannula was used to hydrodissect the lens nucleus followed by hydrodelineation. Phacoemulsification of the lens was performed utilizing phacochop in 8.81 seconds at 14.5% power. The remaining cortical material was removed using the irrigation aspiration mode followed by additional 1% Xylocaine MPF into the anterior chamber followed by viscoelastic to stabilize the capsular bag. A [employer] MX60E 18.0 diopters posterior chamber lens was placed into the capsular bag without difficulty. The remaining viscoelastic material was removed from the anterior chamber with the irrigation/aspiration. Balanced salt solution was used to normalize the intraocular pressure. The incision was checked for watertight integrity. The patient then received 2 drops of 0.5% timolol followed by 2 drops Vigamox, was lightly patched and shielded in the usual manner. There were no complications from the procedure. The patient tolerated the procedure well and was returned to recovery in good condition. MMODL / IJN: [id number] /
== END 2024-02-04 08:50 | disposition home or self-care (01) ==
LOC: OR 05:58
PROVIDERS: ATTEND Ophthalmology
DX: H25.12 Age-related nuclear cataract, left eye (principal); I10 Essential (primary) hypertension; E11.9 Type 2 diabetes mellitus without complications; H00.023 Hordeolum internum right eye, unspecified eyelid; H00.026 Hordeolum internum left eye, unspecified eyelid; Z88.0 Allergy status to penicillin; Z88.5 Allergy status to narcotic agent; Z96.1 Presence of intraocular lens; Z79.899 Other long term (current) drug therapy; Z98.890 Other specified postprocedural states
CPT/HCPCS: 66984; C1780; J2250; J0171; J2001